=== PATIENT | female | born 1950 | race Caucasian/White ===

== ENCOUNTER 2016-10-09 11:07 | Emergency (ER) | payer OTHER ==
[~2016-10-09] VITALS: Ht 167.6 cm; Wt 71.0 kg
[~2016-10-09 11:07] MED LIST: ACET325T33 PO; DOCU-144 PO; FAMO20TA18 PO; HYDR-3498 PO; POLY17PO6 PO
[2016-10-09 11:10] VITALS: Ht 167.6 cm; Wt 71.0 kg
[2016-10-09] MEDS ORDERED: IBUP-1542 PO (12:25)
[2016-10-09] MEDS ORDERED: IBUPROFEN 800 MG TAB PO ONE (12:30)
--- NOTE | 2016-10-09 13:41 | ERD ---
ER Documentation Chief Complaint Date/Time DATE: 10/09/16 TIME: 13:35 Chief Complaint bilat foot pain and swelling [id number] HPI Is a 66-year-old female with asthma and scoliosis who presents with bilateral feet pain. She said that the pain is worse with walking. She has had worsening pain over the past 8 days. She has tried aspirin. Upon review of old medical records this is the patient's third visit to the ER since 2014. She has had no trauma. Her primary doctor is Dr. Carvajal. ROS All systems reviewed and are negative except as per history of present illness. Medications Home Meds Active Scripts Ibuprofen* (Motrin*) 600 Mg Tab, 600 MG PO Q6H Y for PAIN AND OR ELEVATED TEMP, #30 TAB Prov:ALYSSIA METZ MD 10/09/16 Polyethylene Glycol* (Miralax*) 17 Gm Powd.pack, 17 GM PO DAILY Y for CONSTIPATION for 1 Day Prov:TAURUS KRUEGER MD 07/26/16 Hydrocodone Bit-Acetaminophen (Hydrocodone Bit-APAP) 5-325MG Tablet, 1 TAB PO Q6H Y for pain, #1 TAB Prov:TAURUS KRUEGER MD 07/26/16 Famotidine* (Famotidine*) 20 Mg Tablet, 20 MG PO BID for 1 Day, TAB Prov:TAURUS KRUEGER MD 07/26/16 Docusate Sodium* (Colace*) 100 Mg Capsule, 100 MG PO BID, #1 CAP Prov:TAURUS KRUEGER MD 07/26/16 Acetaminophen* (Tylenol*) 325 Mg Tablet, 650 MG PO Q6H Y for PAIN AND OR ELEVATED TEMP, #1 TAB Prov:TAURUS KRUEGER MD 07/26/16 Allergies Allergies: Coded Allergies: No Known Allergy (Unverified , 07/23/16) PMhx/Soc History of Surgery: No Anesthesia Reaction: No Hx Neurological Disorder: No Hx Respiratory Disorders: Yes (ASTHMA ) Hx Cardiac Disorders: Yes (HTN ) Hx Psychiatric Problems: No Hx Miscellaneous Medical Probl: Yes (KNEE FX 09/23/16) Hx Alcohol Use: No Hx Substance Use: No Hx Tobacco Use: No Smoking Status: Never smoker FmHx Positive for hypertension Physical Exam Vitals Vital Signs Date Time Temp Pulse Resp B/P Pulse Ox O2 Delivery O2 Flow Rate FiO2 3/14/17 11:10 99.7 109 18 183/92 96 Physical Exam Const: No acute distress Head: Atraumatic Eyes: Normal Conjunctiva ENT: Normal External Ears, Nose and Mouth. Neck: Full range of motion..~ No meningismus. Resp: Clear to auscultation bilaterally Cardio: Regular rate and rhythm, no murmurs Abd: Soft, non tender, non distended. Normal bowel sounds Skin: No petechiae or rashes Back: No midline or flank tenderness Ext: Bilateral ankle pain without swelling, no obvious cellulitic changes, 2 + dorsalis pedis pulses bilaterally Neur: Awake and alert Psych: Normal Mood and Affect Results 24 hrs Current Medications Medications (Trade) Dose Ordered Sig/Jose Cruz Route PRN Reason Start Time Stop Time Status Last Admin Dose Admin Ibuprofen (Motrin) 800 mg ONCE ONCE PO 10/09/16 12:30 10/09/16 12:31 DC 10/09/16 12:29 Procedures/MDM Patient is a 66-year-old female presents with bilateral foot pain. I believe outpatient management is appropriate. She was given ibuprofen for pain and inflammation reduction. I doubt traumatic injury and I do not believe she requires imaging studies at this time. The patient will be given a prescription for ibuprofen. She can return sooner for any worsening symptoms. Departure Diagnosis: Primary Impression: Foot pain Laterality: bilateral Qualified Code: M79.671 - Pain in both feet Condition: Fair Patient Instructions: Sprain Foot Referrals: GEO CARVAJAL (PCP) Additional Instructions: Call your primary care doctor TOMORROW for an appointment during the next 1-2 days.See the doctor sooner or return here if your condition worsens before your appointment time. ALYSSIA METZ MD Oct 09, 2016 13:41
== END 2016-10-09 13:45 | disposition home or self-care (01) ==
LOC: FTE 11:07
DX: M79.671 Pain in right foot (principal); M79.672 Pain in left foot; I10 Essential (primary) hypertension; J45.909 Unspecified asthma, uncomplicated
CPT/HCPCS: 99283